=== PATIENT | male | born 1960 | race Caucasian/White ===

== ENCOUNTER → 2024-05-08 16:56 | Outpatient (REF) | payer OTHER, SELFPAY | LOC: RCS 16:56 | PROVIDERS: ATTENDING PHYSICIAN Physician Assistant | DX: R53.82 Chronic fatigue, unspecified (principal); R06.02 Shortness of breath; R94.31 Abnormal electrocardiogram [ECG] [EKG] | CPT/HCPCS: 71046; 93306 ==